=== PATIENT | male | born 1985 | race Caucasian/White ===

== ENCOUNTER 2017-04-19 17:23 | Emergency (ER) | payer SELFPAY ==
[2017-04-19 17:27] VITALS: BP 132/80; PULSE 121; RESP 16; TEMP 99; O2SAT 93
[2017-04-19] MEDS ORDERED: PENICILLIN VK 250MG PREPACK#6 BTL TAKEHOME ONE (17:45)
--- NOTE | 2017-04-19 17:46 | EDPHY ---
H & P Time Seen by Provider: 04/19/17 17:34 HPI/ROS: CHIEF COMPLAINT: Sore throat HISTORY OF PRESENT ILLNESS: The patient is a 31-year-old male who presents emergency department with 4 days of sore throat. The patient states "I think I have strep throat. "The patient describes bilateral throat pain. It is worse with swallowing. He has noticed white lesions on the back of his throat. He has had no significant cough. No reported fever. No abdominal pain. No nausea or vomiting. No headache. REVIEW OF SYSTEMS: My complete review of systems is negative except as mentioned in the HPI. Past Medical/Surgical History: Negative Past surgical history: Negative Social history: Patient denies smoking Smoking Status: Never smoked Physical Exam: 37.2, 132/80, 121, 16, 93% on room air GENERAL: Well-appearing, in no acute distress, alert. HEENT: Eyes normal to inspection, no signs of dehydration. The patient's throat is erythematous. There are multiple white lesions posteriorly. Uvula is midline. There is no swelling or mass. No stridor. NECK: No thyromegaly, no lymphadenopathy, supple. RESPIRATORY: Clear to auscultation bilaterally, no rales, rhonchi or wheezing. CVS: Regular rate and rhythm, no rubs, murmurs, or gallops. ABDOMEN: Soft, nontender, nondistended, no splenomegaly. BACK: Normal to inspection, no CVA tenderness. SKIN: Normal color, no rash, warm, dry. No pallor. EXTREMITIES: No pedal edema, no calf tenderness, no Homans sign or cords, no joint swelling. NEURO/PSYCH: Alert and oriented x3, normal mood and affect, normal motor sensory exam. No obvious cranial nerve deficit. Constitutional: Initial Vital Signs Temperature (C) 37.2 C 04/19/17 17:26 Heart Rate 121 H 04/19/17 17:26 Respiratory Rate 16 04/19/17 17:26 Blood Pressure 132/80 H 04/19/17 17:26 O2 Sat (%) 93 04/19/17 17:26 O2 Delivery Mode Room Air Allergies/Adverse Reactions: No Known Allergies Allergy (Unverified 04/19/17 17:27) Home Medications: Medication Instructions Recorded Penicillin V Potassium 500 mg PO TID 10 Days tablet 04/19/17 Medical Decision Making ED Course/Re-evaluation: In the emergency department I discussed possible etiologies with the patient. I answered all his questions. Based on the patient's presentation he will be treated with antibiotics. He has no allergies. He is given a prescription of penicillin. He will return with worsening symptoms and was given warnings. Differential Diagnosis: My differential includes but is not limited to pharyngitis, strep pharyngitis, abscess, retropharyngeal abscess, peritonsillar abscess, dehydration, influenza , bacteremia, sepsis Departure - Departure Disposition: Home, Routine, Self-Care Clinical Impression: Acute pharyngitis Qualifiers: Pharyngitis/tonsillitis etiology: unspecified etiology Qualified Code(s): J02.9 - Acute pharyngitis, unspecified Condition: Good Instructions: Pharyngitis (ED) Additional Instructions: Return with increasing sore throat, shortness of breath, fever, vomiting or any other concerns. Take your entire course of antibiotics. Referrals: Linda Echavarria MD [[facility] [place] Primary Care Provider] - 5-7 days, call for appt. Prescriptions: Penicillin V Potassium 500 mg PO TID 10 Days tablet
== END 2017-04-19 18:01 | disposition home or self-care (01) ==
DX: J02.9 Acute pharyngitis, unspecified (principal)